=== PATIENT | male | born 1970 | race Caucasian/White ===

== ENCOUNTER → 2017-09-14 11:52 | Outpatient (CLI) | payer OTHER, SELFPAY ==
[2017-09-14 13:10] LABS: Add Manual Diff / Slide Review NO; Basophils Percent Auto 0.7 % (0-2); Eosinophils Percent Auto 2.6 % (2-4); Hematocrit 40.7 % (41-53); Hemoglobin 14.4 g/dL (13.5-17.5); Lymphocytes Percent Auto 23.4 % (25-40); Mean Corpuscular HGB Conc 35.5 % (30-36); Mean Corpuscular Hemoglobin 31.2 PG (26-34); Mean Corpuscular Volume 88.1 fL (80-100); Monocytes Percent Auto 10.2 % (3-14); Neutrophils Absolute Auto 4000 /uL (3000-5900); Neutrophils Percent Auto 63.1 % (50-75); Platelet Count 180 X10^3/uL (150-400); Red Blood Cell Count 4.61 X10^6/uL (4.5-5.9); Red Cell Distribution Width 13.4 % (11.6-14.8); White Blood Cell Count 6.3 X10^3/uL (4.5-11.0)
[2017-09-14 13:11] LABS: Hemoglobin A1C% w Est Avg Glu 4.8 % (4.0-6.0)
[2017-09-14 13:38] LABS: Alanine Aminotransferase 28 IU/L (21-72); Albumin 4.3 g/dL (3.5-5.0); Albumin Globulin Ratio 1.7 (1.0-2.8); Alkaline Phosphatase 68 U/L (38-126); Aspartate Aminotransferase 21 IU/L (17-59); BUN Creatinine Ratio 13.8 (6-22); Bilirubin Total 0.5 mg/dL (0.2-1.3); Calcium 9.5 mg/dL (8.4-10.2); Cholesterol 198 mg/dL (140-199); Estimated Glomerular Filt Rate > 60.0 mL/min (>60); Globulin 2.5 g/dL (1.7-4.1); Glucose 88 mg/dL (70-100); HDL Cholesterol 84 mg/dL (40-60); HEMOLYSIS < 15 (0-50); LDL Cholesterol Calculated 78 mg/dL (<100); Potassium 4.4 mmol/L (3.4-5.1); Sodium 140 mmol/L (137-145); Total Protein 6.8 g/dL (6.3-8.2); Triglycerides 179 mg/dL (35-150)
[2017-09-14 13:55] LABS: Free T4, Direct Thyroxine 0.94 ng/dL (0.78-2.19)
[2017-09-14 14:09] LABS: Thyroid Stimulating Hormone 3.03 uIU/mL (0.47-4.68)
== END ==
PROVIDERS: PCP Nurse Practitioner Family; Visit Provider Nurse Practitioner Family
DX: Z00.00 Encounter for general adult medical examination without abnormal findings (principal); E66.9 Obesity, unspecified; Z79.899 Other long term (current) drug therapy; F41.9 Anxiety disorder, unspecified; I10 Essential (primary) hypertension
CPT/HCPCS: 36415; 80053; 80061; 83036; 84439; 84443; 85025

== ENCOUNTER → 2018-10-07 14:28 | Outpatient (CLI) | payer OTHER, SELFPAY ==
[2018-10-07 15:03] LABS: Urine Amphetamines Negative (Negative); Urine Barbiturates Negative (Negative); Urine Benzodiazepines Negative (Negative); Urine Cocaine Negative (Negative); Urine MDMA Negative (Negative); Urine Methadone Negative (Negative); Urine Methamphetamines Negative (Negative); Urine Morphine/Opi cutoff 2000 Negative (Negative); Urine Phencyclidine Negative (Negative); Urine Tetrahydrocannabinol Negative (Negative); Urine Tricyclic Antidepressant Negative (Negative)
[2018-10-07 15:04] LABS: Urine Oxycodone Negative (Negative)
== END ==
LOC: LAB 14:30
PROVIDERS: Family Provider Family Medicine; PCP Nurse Practitioner Family; Visit Provider Psychiatry & Neurology Psychiatry
DX: F32.9 Major depressive disorder, single episode, unspecified (principal); F41.9 Anxiety disorder, unspecified; F90.9 Attention-deficit hyperactivity disorder, unspecified type; G47.00 Insomnia, unspecified
CPT/HCPCS: 80305

== ENCOUNTER → 2019-01-22 14:21 | Outpatient (CLI) | payer OTHER, SELFPAY ==
[2019-01-22 14:49] LABS: Urine Cocaine Negative (Negative); Urine Tetrahydrocannabinol Negative (Negative)
[2019-01-22 14:50] LABS: UR Morphine/Opiate cutoff 300 Negative (Negative); Urine Amphetamines Negative (Negative); Urine Barbiturates Negative (Negative); Urine Benzodiazepines Negative (Negative); Urine MDMA Negative (Negative); Urine Methadone Negative (Negative); Urine Methamphetamines Negative (Negative); Urine Oxycodone Negative (Negative); Urine Phencyclidine Negative (Negative); Urine Tricyclic Antidepressant Negative (Negative)
== END ==
PROVIDERS: PCP Nurse Practitioner Family; Visit Provider Psychiatry & Neurology Psychiatry
DX: F32.9 Major depressive disorder, single episode, unspecified (principal); F41.9 Anxiety disorder, unspecified; F90.9 Attention-deficit hyperactivity disorder, unspecified type; G47.00 Insomnia, unspecified
CPT/HCPCS: 80305

== ENCOUNTER → 2020-07-29 10:20 | Outpatient (CLI) | payer OTHER, SELFPAY ==
[2020-07-29] MEDS: COVID-19 VACC #1, MRNA(MOD) 100 MCG/0.5 ML VIAL IM (10:28)
== END ==
PROVIDERS: PCP Nurse Practitioner Family; Visit Provider Internal Medicine
DX: Z23 Encounter for immunization (principal)
CPT/HCPCS: 0011A; 91301

== ENCOUNTER → 2020-08-26 10:11 | Outpatient (CLI) | payer OTHER, SELFPAY ==
[2020-08-26] MEDS: COVID-19 VACC #2, MRNA(MOD) 100 MCG/0.5 ML VIAL IM (10:16)
== END ==
PROVIDERS: PCP Nurse Practitioner Family; Visit Provider Internal Medicine
DX: Z23 Encounter for immunization (principal)
CPT/HCPCS: 0012A; 91301

== ENCOUNTER 2021-02-04 10:27 | Emergency (ER) | payer SELFPAY ==
[2021-02-04 10:49] VITALS: BP 130/65; PULSE 61; RESP 18; TEMP 36.3; O2SAT 99
[2021-02-04 11:42] LABS: Bacteria Urine None Seen; Culture Indicated Urine Specimen Cultured; RBC Urine None Seen (0-5/HPF); WBC Urine 0-1/HPF (0-5/HPF)
[2021-02-04 12:30] VITALS: BP 144/83
[2021-02-04 12:31] VITALS: PULSE 62; O2SAT 100
--- NOTE | 2021-02-04 12:45 | ED_ITS ---
HPI - Back Pain/Injury <Felipe Bolden PA-C - Last Filed: 02/04/21 19:47> General Chief Complaint: Back Pain/Injury Stated Complaint: kidney pain x2 weeks Time Seen by Provider: 02/04/21 12:13 Source: patient Limitations: no limitations History of Present Illness HPI Narrative: Federico presents today with chief complaint of left lower flank and lower back pain that started about 2 weeks ago. He reports that this has waxed and waned over the last 2 weeks but over the last few days has gotten more consistent. Pain is made worse with bending over forward or twisting movements. Also pressing on his left lower back can sometimes elicit pain. He denies any significant abdominal pain, testicular pain, urinary symptoms, history of kidney stones, history of trauma, recent medication changes, rash, constipation, diarrhea, nausea, vomiting, chest pain, shortness of breath or any other acute concerns or complaints at this time. He has not tried anything to help alleviate symptoms aside from having a few marijuana edibles which does seem to relieve his pain. Related Data Home Medications Medication Instructions Recorded Confirmed clonidine HCl 0.2 mg tablet 0.2 mg PO BEDTIME PRN 02/04/21 02/04/21 lamotrigine 150 mg tablet 150 mg PO BEDTIME 02/04/21 02/04/21 propranolol 10 mg tablet 10 - 20 mg PO DAILY PRN 02/04/21 02/04/21 sertraline 100 mg tablet 100 mg PO BID 02/04/21 02/04/21 Allergies Allergy/AdvReac Type Severity Reaction Status Date / Time meloxicam [MELOXICAM] AdvReac Intermediate Nausea Unverified 02/04/21 13:12 Review of Systems <Felipe Bolden PA-C - Last Filed: 02/04/21 19:47> Review of Systems Narrative: As per HPI Patient History <Felipe Bolden PA-C - Last Filed: 02/04/21 19:47> Social History Smoking Status: Never smoker Smoking Status: Never smoker alcohol intake frequency: 0-2 drinks per day Substance Use Type: marijuana Exam <Felipe Bolden PA-C - Last Filed: 02/04/21 19:47> Narrative Exam Narrative: Exam Narrative: Const General: cooperative, healthy appearing, comfortable, no acute distress, well developed and well groomed Nutritional Appearance: Elevated BMI Orientation: alert and oriented x3 HENMT Head: normal to inspection and atraumatic Ears: hearing grossly normal bilaterally Nose: external nose normal and nares normal Face and sinus: normal facial exam Neck Neck: normal visual inspection and supple Resp Effort & Inspection: normal respiratory effort, able to speak in complete sentences, no audible wheezes, not labored, no nasal flaring and no respiratory distress GI Nondistended, normal bowel sounds, nontender to palpation. Neuro General: alert, oriented x3, gait normal, tone normal and moves all extremities Cognition: normal cognition Speech: speech normal Gait: normal gait Musculoskeletal No midline spinal tenderness, no bony tenderness appreciated, left lower lumbar paraspinal muscle tenderness with palpation. Pain with left straight leg raise Skin No rash or lesions noted Psych Appearance: grossly normal and well kempt Mental Status: mental status grossly normal Speech and Movement: speech and movement normal Mood: congruent mood Affect: normal affect Initial Vital Signs Initial Vital Signs: Vital Signs Temperature 97.4 F L 02/04/21 10:49 Pulse Rate 61 02/04/21 10:49 Respiratory Rate 18 02/04/21 10:49 Blood Pressure 130/65 02/04/21 10:49 Pulse Oximetry 99 02/04/21 10:49 <Dia Berman DO - Last Filed: 02/10/21 00:50> Initial Vital Signs Initial Vital Signs: Vital Signs Temperature 97.4 F L 02/04/21 10:49 Pulse Rate 61 02/04/21 10:49 Respiratory Rate 18 02/04/21 10:49 Blood Pressure 130/65 02/04/21 10:49 Pulse Oximetry 99 02/04/21 10:49 Course <Felipe Bolden PA-C - Last Filed: 02/04/21 19:47> Orders Ordered: Discontinued Medications Ketorolac Tromethamine (Ketorolac 30 Mg/Ml Vial) 30 mg IM NOW ONE Stop: 02/04/21 13:09 Last Admin: 02/04/21 13:20 Dose: 30 mg Documented by: JESUS Vital Signs Vital signs: Vital Signs - 8 hr 02/04/21 12:30 02/04/21 12:31 02/04/21 13:00 Pulse Rate 62 58 L Blood Pressure 144/83 H 139/83 Pulse Oximetry 100 99 <Dia Berman DO - Last Filed: 02/10/21 00:50> Orders Ordered: Discontinued Medications Ketorolac Tromethamine (Ketorolac 30 Mg/Ml Vial) 30 mg IM NOW ONE Stop: 02/04/21 13:09 Last Admin: 02/04/21 13:20 Dose: 30 mg Documented by: JESUS Vital Signs Vital signs: Vital Signs - 8 hr 02/04/21 12:30 02/04/21 12:31 02/04/21 13:00 Pulse Rate 62 58 L Blood Pressure 144/83 H 139/83 Pulse Oximetry 100 99 MDM - Back Pain/Injury <Felipe Bolden PA-C - Last Filed: 02/04/21 19:47> Lab Data Labs: Lab Results 02/04/21 Range/Units 11:23 Urine RBC None seen (0-5/HPF) Urine WBC 0-1/hpf (0-5/HPF) Urine Bacteria None seen (None) Ur Culture Indicated? Specimen cultured Urine Dip Bedside Urine Glucose Negative Bedside Urine Bilirubin - Negative Bedside Urine Ketone - Negative Urine Specific [place] 1.020 Bedside Urine Occult Blood - Negative Bedside Urine pH 6.5 Bedside Urine Protein - Negative Bedside Urine Urobilinogen - Negative Bedside Urine Nitrite - Negative Bedside Urine Leukocytes + 70 Esterase MDM Narrative Medical decision making narrative: Patient is well-appearing at this time and has a reassuring physical examination. I suspect that this is a muscle strain/spasm that is causing his symptoms. No other significant signs of infection. He is not experiencing any urinary symptoms so I think that kidney stone, acute pyelo, UTI are less likely at this time. He is also not sexually active so STI does not seem likely. Return precautions discussed. Patient verbalizes understanding and agrees to plan and has no further concerns at this time. Thank you A [id number] system was used with the dictation of this note. Please disregard any spelling or grammatical errors. <Dia Berman DO - Last Filed: 02/10/21 00:50> Lab Data Labs: Lab Results 02/04/21 Range/Units 11:23 Urine RBC None seen (0-5/HPF) Urine WBC 0-1/hpf (0-5/HPF) Urine Bacteria None seen (None) Ur Culture Indicated? Specimen cultured Urine Dip Bedside Urine Glucose Negative Bedside Urine Bilirubin - Negative Bedside Urine Ketone - Negative Urine Specific [place] 1.020 Bedside Urine Occult Blood - Negative Bedside Urine pH 6.5 Bedside Urine Protein - Negative Bedside Urine Urobilinogen - Negative Bedside Urine Nitrite - Negative Bedside Urine Leukocytes + 70 Esterase Discharge Plan Departure Patient Disposition: Home Clinical Impression: Strain of lumbar region Qualifiers: Encounter type: initial encounter Qualified Code(s): S39.012A - Strain of muscle, fascia and tendon of lower back, initial encounter Instructions: DI for Back Spasm Activity Restrictions/Additional Instructions: It was very nice to meet you this afternoon. Please apply warm compresses to the affected area, do light exercise, and light stretching to help with symptoms. You can also use [id number] nonsteroidal anti-inflammatories l gabriel ibuprofen or naproxen as needed to help with symptoms if necessary. Please follow-up with your PCP if your symptoms fail to improve as expected. If you develop a rash, fever, acutely worsening pain, or have any other acute concerns or complaints do not hesitate to return for re-evaluation. Thank you Felipe Bolden PA-C Prescriptions: No Action lamotrigine 150 mg tablet 150 mg PO BEDTIME RF: 0 sertraline 100 mg tablet 100 mg PO BID RF: 0 propranolol 10 mg tablet 10 - 20 mg PO DAILY PRN (Reason: Anxiety) RF: 0 clonidine HCl 0.2 mg tablet 0.2 mg PO BEDTIME PRN (Reason: Anxiety) RF: 0 Referrals: Lis Parry ARNP [Primary Care Provider] - <Dia Berman DO - Last Filed: 02/10/21 00:50> Cosign ED Attending Beth Attestation: I was immediately available in the department for consultation. Documentation has been reviewed.
--- NOTE | 2021-02-04 12:53 | PC.NURSE ---
Reports more frequent urination though thinks it is due to increased fluid intake.
[2021-02-04 13:00] VITALS: BP 139/83; PULSE 58; O2SAT 99
[2021-02-04] MEDS: KETOROLAC 30 MG/ML VIAL IM (13:20)
== END 2021-02-04 13:30 | disposition home or self-care (01) ==
PROVIDERS: Emergency Medicine; Emergency Provider Physician Assistant; PCP Nurse Practitioner Family
DX: S39.012A Strain of muscle, fascia and tendon of lower back, initial encounter (principal)
CPT/HCPCS: 81003; 81015; 87086; 96372; 99283; J1885

== ENCOUNTER 2021-02-16 14:34 | Emergency (ER) | payer SELFPAY ==
[2021-02-16 14:40] VITALS: BP 121/84; PULSE 92; RESP 14; TEMP 36.1; O2SAT 99; BMI 30.5
--- NOTE | 2021-02-16 14:56 | ED.NEUROSD ---
HPI - Neuro Symptoms/Deficit General Chief Complaint: Neuro Symptoms/Deficit Stated Complaint: symptoms of tia?, slurred speach, collapse Time Seen by Provider: 02/16/21 14:56 Source: patient Mode of arrival: Ambulatory Limitations: no limitations History of Present Illness HPI Narrative: Patient is a 50-year-old male who is here for evaluation of a potential TIA. Approximately 4 days ago he was in [place]. He states that he does admit he was having some alcoholic beverages. For a period of time that he states was about 1 hour he had episodes of slurred speech. He did pass out as well during this time. Also was having other balance issues and troubles moving his arms. All those issues have resolved. He has never had anything like this in the past. Is not currently having any symptoms. Does not have a primary doctor. Is taking his mental health medications as directed. On Anticoagulants: No Related Data Home Medications Medication Instructions Recorded Confirmed clonidine HCl 0.2 mg tablet 0.2 mg PO BEDTIME PRN 02/04/21 02/04/21 lamotrigine 150 mg tablet 150 mg PO BEDTIME 02/04/21 02/04/21 propranolol 10 mg tablet 10 - 20 mg PO DAILY PRN 02/04/21 02/04/21 sertraline 100 mg tablet 100 mg PO BID 02/04/21 02/04/21 Allergies Allergy/AdvReac Type Severity Reaction Status Date / Time meloxicam [MELOXICAM] AdvReac Intermediate Nausea Verified 02/16/21 14:40 Review of Systems Eyes Eyes: Reports as per HPI and Reports system reviewed and no additional complaints, except as documented Cardiovascular Cardiovascular: Reports as per HPI and Reports system reviewed and no additional complaints, except as documented Respiratory Respiratory: Reports as per HPI and Reports system reviewed and no additional complaints, except as documented Gastrointestinal Gastrointestinal: Reports as per HPI and Reports system reviewed and no additional complaints, except as documented Integumentary/Breasts Skin/Breast: Reports system reviewed and no additional complaints, except as documented Neurologic Neurologic: Reports system reviewed and no additional complaints, except as documented and Reports as per HPI Hematologic/Lymphatic On Anticoagulants: No Patient History Medical History Migraine headache Strain of lumbar region Social History Smoking Status: Never smoker Smoking Status: Never smoker alcohol intake frequency: 3 or more drinks per day Substance Use Type: marijuana Exam Initial Vital Signs Initial Vital Signs: Vital Signs Temperature 97.0 F L 02/16/21 14:40 Pulse Rate 92 H 02/16/21 14:40 Respiratory Rate 14 02/16/21 14:40 Blood Pressure 121/84 02/16/21 14:40 Pulse Oximetry 99 02/16/21 14:40 Const General: cooperative, healthy appearing and comfortable HENMT Head: normal to inspection and normocephalic Eyes Pupils: PERRL EOM: EOM intact bilaterally Resp Effort & Inspection: normal respiratory effort Auscultation: clear to auscultation bilaterally Cardio Rate: regular rate Rhythm: regular rhythm GI Inspection: normal to inspection Skin General: no rashes or lesions noted Neuro General: patient alert, patient awake, patient oriented x3 and moves all extremities Cranial Nerves: CN's II-XI intact bilaterally Cognition: normal cognition Speech: speech normal Gait: normal gait Motor: muscle tone normal throughout Sensory Exam: no sensory deficits noted Extrem General: normal to inspection and capillary refill normal Psych Appearance: grossly normal and well kempt Scores ABCD2 Age >= 60 years: no Initial BP. Either SBP >= 140 or DBP >= 90.: no Clinical features of the TIA: speech disturbance without weakness Duration of symptoms: 10-59 minutes History of diabetes: no ABCD2 Score: 2 Course Orders Ordered: ED Orders 02/16/21 15:29 Basic Metabolic Panel Stat Complete Blood Count AUTO DIFF Stat Vital Signs Vital signs: Vital Signs - 8 hr 02/16/21 14:40 Temperature 97.0 F L Pulse Rate 92 H Respiratory Rate 14 Blood Pressure 121/84 Pulse Oximetry 99 MDM - Neuro Symptoms/Deficit Lab Data Attestation: I reviewed the patient's lab results. Result diagrams: 02/16/21 15:29 02/16/21 15:29 Labs: Lab Results 02/16/21 02/16/21 Range/Units 15:29 15:29 WBC 8.7 (4.5-11.0) X10^3/uL RBC 4.37 L (4.5-5.9) X10^6/uL Hgb 14.0 (13.5-17.5) g/dL Hct 40.4 L (41-53) % MCV 92.6 (80-100) fL MCH 32.0 (26-34) PG MCHC 34.6 (30-36) % RDW 11.9 (11.6-14.8) % Plt Count 214 (150-400) X10^3/uL Neut % (Auto) 78.5 H (50-75) % Lymph % (Auto) 11.9 L (25-40) % [place] % (Auto) 8.6 (3-14) % Eos % (Auto) 0.6 L (2-4) % Baso % (Auto) 0.4 (0-2) % Neut # (Auto) 6800 (4640-0855) /uL Lymph # (Auto) 1000 L (1365-7103) /uL [place] # (Auto) 700 (0-900) /uL Eos # (Auto) 100 (0-450) /uL Baso # (Auto) 0 (0-100) /uL Sodium 133 L (137-145) mmol/L Potassium 4.2 (3.4-5.1) mmol/L Chloride 100 (98-107) mmol/L Carbon Dioxide 28 (22-32) mmol/L BUN 7 L (9-20) mg/dL Creatinine 0.84 (0.66-1.25) mg/dL Estimated GFR > 60.0 (>60) mL/min BUN/Creatinine Ratio 8.3 (6-22) Glucose 129 H (70-100) mg/dL Calcium 9.4 (8.4-10.2) mg/dL MDM Narrative Medical decision making narrative: Patient is completely asymptomatic today. His symptoms occurred approximately 4 days ago. What he describes could potentially have been a TIA although it is somewhat confounded by the fact that he admits he was drinking at the time. He also has a history of migraine headaches and this could potentially been a atypical migraine. His labs are unremarkable. Given the length of time since his symptoms him when he presented today I do not feel that a head CT would be warranted. I have low suspicion for intracranial hemorrhage. Given what he describes his symptoms as I also have low suspicion for seizure. I did inform him that he should have further workup. He does not currently have a primary doctor. I contacted the [facility] and they stated that they would see if a provider there would be willing to see him and they would contact him for follow-up. He was given their phone number as well. He was given return precautions and follow-up instructions. He expressed understanding and agreement. Discharge Plan Departure Patient Disposition: Home Clinical Impression: Transient cerebral ischemia Instructions: DI for Transient Ischemic Attack Activity Restrictions/Additional Instructions: You should be receiving a call from [facility] within the next 24-48 hours. If you do not hear from them contact them at the number provided below. Continue to take all of your medications as directed. Take your blood pressure at home like we discussed. Return to the emergency department for any new or worsening symptoms Prescriptions: No Action lamotrigine 150 mg tablet 150 mg PO BEDTIME RF: 0 sertraline 100 mg tablet 100 mg PO BID RF: 0 propranolol 10 mg tablet 10 - 20 mg PO DAILY PRN (Reason: Anxiety) RF: 0 clonidine HCl 0.2 mg tablet 0.2 mg PO BEDTIME PRN (Reason: Anxiety) RF: 0 Referrals: Lis Parry ARNP [Primary Care Provider] - Tucker Faye MD [Physician] -
[2021-02-16 15:36] LABS: Add Manual Diff / Slide Review NO; Basophils Absolute Auto 0 /uL (0-100); Basophils Percent Auto 0.4 % (0-2); Eosinophils Absolute Auto 100 /uL (0-450); Eosinophils Percent Auto 0.6 % (2-4); Hematocrit 40.4 % (41-53); Lymphocytes Absolute Auto 1000 /uL (1100-4500); Lymphocytes Percent Auto 11.9 % (25-40); Mean Corpuscular HGB Conc 34.6 % (30-36); Mean Corpuscular Volume 92.6 fL (80-100); Monocytes Absolute Auto 700 /uL (0-900); Monocytes Percent Auto 8.6 % (3-14); Neutrophils Absolute Auto 6800 /uL (1500-7000); Neutrophils Percent Auto 78.5 % (50-75); Platelet Count 214 X10^3/uL (150-400); Red Blood Cell Count 4.37 X10^6/uL (4.5-5.9); Red Cell Distribution Width 11.9 % (11.6-14.8); White Blood Cell Count 8.7 X10^3/uL (4.5-11.0)
[2021-02-16 15:48] LABS: BUN Creatinine Ratio 8.3 (6-22); Blood Urea Nitrogen 7 mg/dL (9-20); Calcium 9.4 mg/dL (8.4-10.2); Carbon Dioxide 28 mmol/L (22-32); Chloride 100 mmol/L (98-107); Estimated Glomerular Filt Rate > 60.0 mL/min (>60); Glucose 129 mg/dL (70-100); HEMOLYSIS < 15 (0-50); Potassium 4.2 mmol/L (3.4-5.1); Sodium 133 mmol/L (137-145)
[2021-02-16 16:29] VITALS: BP 116/80; PULSE 69; O2SAT 98
== END 2021-02-16 16:38 | disposition home or self-care (01) ==
PROVIDERS: Emergency Provider Emergency Medicine; PCP Nurse Practitioner Family
DX: G45.9 Transient cerebral ischemic attack, unspecified (principal)
CPT/HCPCS: 80048; 85025; 99283; 99284

== ENCOUNTER → 2021-03-05 10:44 | Outpatient (CLI) | payer SELFPAY ==
[2021-03-05 12:29] LABS: Add Manual Diff / Slide Review NO; Basophils Absolute Auto 100 /uL (0-100); Basophils Percent Auto 1.2 % (0-2); Eosinophils Absolute Auto 100 /uL (0-450); Eosinophils Percent Auto 2.1 % (2-4); Hematocrit 36.7 % (41-53); Hemoglobin 12.8 g/dL (13.5-17.5); Lymphocytes Absolute Auto 1300 /uL (1100-4500); Lymphocytes Percent Auto 25.6 % (25-40); Mean Corpuscular Hemoglobin 32.2 PG (26-34); Monocytes Absolute Auto 500 /uL (0-900); Neutrophils Absolute Auto 3100 /uL (1500-7000); Neutrophils Percent Auto 62.1 % (50-75); Platelet Count 251 X10^3/uL (150-400); Red Blood Cell Count 3.99 X10^6/uL (4.5-5.9); White Blood Cell Count 5.1 X10^3/uL (4.5-11.0)
[2021-03-05 12:49] LABS: Alanine Aminotransferase 27 IU/L (<50); Albumin Globulin Ratio 1.9 (1.0-2.8); Alkaline Phosphatase 76 U/L (38-126); Aspartate Aminotransferase 24 IU/L (17-59); BUN Creatinine Ratio 14.9 (6-22); Bilirubin Total 0.3 mg/dL (0.2-1.3); Blood Urea Nitrogen 11 mg/dL (9-20); Calcium 9.2 mg/dL (8.4-10.2); Carbon Dioxide 28 mmol/L (22-32); Chloride 101 mmol/L (98-107); Cholesterol 149 mg/dL (140-199); Estimated Glomerular Filt Rate > 60.0 mL/min (>60); Globulin 2.1 g/dL (1.7-4.1); Glucose 93 mg/dL (70-100); HDL Cholesterol 60 mg/dL (40-60); HEMOLYSIS < 15 (0-50); LDL Cholesterol Calculated 74 mg/dL (<100); Potassium 4.5 mmol/L (3.4-5.1); Sodium 136 mmol/L (137-145); Total Protein 6.1 g/dL (6.3-8.2); Triglycerides 74 mg/dL (35-150)
[2021-03-05 12:50] LABS: Hemoglobin A1C% w Est Avg Glu 4.8 % (4.0-6.0)
[2021-03-05 13:16] LABS: TSH w/ Reflex to FT4 1.75 uIU/mL (0.47-4.68)
[2021-03-05 13:36] LABS: Erythrocyte Sedimentation Rate 3 MM/HR (0-15)
== END ==
LOC: LAB 10:45
PROVIDERS: PCP Nurse Practitioner Family; Referring Provider Physician Assistant; Visit Provider Physician Assistant
DX: G45.9 Transient cerebral ischemic attack, unspecified (principal); R73.9 Hyperglycemia, unspecified
CPT/HCPCS: 36415; 80053; 80061; 81241; 83036; 84443; 85025; 85302; 85303; 85651